=== PATIENT | male | born 1990 | race Caucasian/White ===

== ENCOUNTER 2024-09-10 23:45 | Emergency (ER) | payer OTHER, BC ==
[2024-09-11 01:33] LABS: HEPATITIS C AB NON-REACTIVE (Non-React); HIV RAPID SCREEN RLFX COMFIRM NON-REACTIVE (Non-React)
[2024-09-12 16:47] LABS: HBS AB 19.49 IU/L
== END 2024-09-11 00:33 | disposition home or self-care (01) ==
LOC: JD.ED 23:45
DX: Z77.21 Contact with and (suspected) exposure to potentially hazardous body fluids (principal)
CPT/HCPCS: 36415; 86706; 86803; 99283; G0433